=== PATIENT | male | born 1970 | race Caucasian/White ===

== ENCOUNTER 2024-03-06 09:31 | Emergency (ER) | payer OTHER, SELFPAY ==
[2024-03-06] VITALS (7 sets, daily range): BP systolic 140–191; BP diastolic 82–120; PULSE 80–103; RESP 16–20; TEMP 36.7–37.4; O2SAT 95–97; BMI 32.5
--- NOTE | 2024-03-06 10:12 | XR_ITS ---
Examination: Knee, left , 3 views Technique: Knee AP, lateral, oblique 3 views Date and time of exam: March 06, 2024 1016 hours INDICATIONS: Left knee redness swelling and pain today FINDINGS: Large knee effusion Old bone density near the anterior tibial tubercle No acute fracture IMPRESSION: Large knee effusion, seen with internal derangement of the knee, septic arthritis
--- NOTE | 2024-03-06 10:13 | PD.EDRME ---
Rapid Medical Screening Exam RME Arrival date/time: 03/06/24 09:31 53-year-old male presents emergency department complaints of left knee pain swelling and tenderness. I have greeted and performed a focused initial assessment of this patient. Initial appropriate labs ordered at this time. A comprehensive ED assessment and evaluation of the patient and analysis of all test and completion of medical decision making process will be conducted by additional ED provider. Chief Complaint: Extremity Problem,Nontraumatic Time Seen by Provider: 03/06/24 09:49 Vital signs: Vital Signs Temperature 99.4 F 03/06/24 09:49 Pulse Rate 98 03/06/24 09:49 Respiratory Rate 20 03/06/24 09:49 Blood Pressure 175/114 H 03/06/24 09:49 Pulse Oximetry (%) 96 03/06/24 09:49 Oxygen Delivery Method Room Air 03/06/24 09:49
[2024-03-06 10:43] LABS: Basophils # (Auto) 0.1 Thou/mm3 (0.0-0.2); Basophils % (Auto) 1 % (0-2.5); Eosinophils # (Auto) 0.1 Thou/mm3 (0.0-0.5); Eosinophils % (Auto) 1 % (0-10); Hematocrit 46.6 % (41.0-53.0); Hemoglobin 15.8 g/dL (13.5-16.0); Immature Granulocytes % (Auto) 0 % (0-0); Immature Granulocytes Auto 0.06 Thou/mm3 (0.00-0.00); Lymphocytes # (Auto) 3.7 Thou/mm3 (1.0-4.8); Lymphocytes % (Auto) 26 % (10-50); Mean Corpuscular HGB Conc 33.9 g/dl (31.0-37.0); Mean Corpuscular Hemoglobin 28.7 pg (25.0-35.0); Mean Corpuscular Volume 85 fL (80-100); Monocytes # (Auto) 1.5 Thou/mm3 (0.0-0.8); Monocytes % (Auto) 10 % (0-12); Neutrophils # (Auto) 9.2 Thou/mm3 (1.8-7.7); Neutrophils % (Auto) 63 % (37-80); Nucleated Red Blood Cell % 0 /100 WBC (0); Platelet Count 326 Thou/mm3 (140-440); RDW Standard Deviation 41.3 fL (35.1-43.9); White Blood Count 14.6 Thou/mm3 (3.8-10.6)
[2024-03-06 11:00] LABS: Alanine Aminotransferase 36 U/L (10-49); Albumin, Serum 4.9 gm/dL (3.5-5.0); Albumin/Globulin Ratio 1.6 (1.2-2.2); Alkaline Phosphatase 86 U/L (46-116); Anion Gap 9 (7-16); Aspartate Amino Transferase 24 U/L (0-34); BUN/Creatinine Ratio 11 Ratio (12-20); Bilirubin,Total 0.9 mg/dL (0.3-1.2); Blood Urea Nitrogen 15 mg/dL (9-23); C-Reactive Protein 6.5 mg/dL (0.0-0.9); Calcium 9.3 mg/dL (8.3-10.6); Calcium (Corrected) 9.3 mg/dL (8.5-10.1); Carbon Dioxide 24.4 mMol/L (20.0-31.0); Chloride 103 mMol/L (98-107); Creatinine (Component) 1.4 mg/dL (0.6-1.3); Estimated Creatinine Clearance 71.1 mL/min (>60); Glucose 93 mg/dL (74-106); Osmolality,Calculated 272 (275-295); Potassium 3.8 mMol/L (3.4-5.1); Sodium 136 mMol/L (136-145); Total Protein 7.9 gm/dL (5.7-8.2); Uric Acid 11.7 mg/dL (3.7-9.2); eGFR > 60 See Note
[2024-03-06 13:52] LABS: Sed Rate (ESR) 53 mm/hr (0-20)
[2024-03-06] MEDS: hydrALAZINE INJ 20 MG/ML VIAL IV (19:49)
[2024-03-06] MEDS: HYDROcodone/APAP 5/325 TABLET 1 TAB PO (19:49)
--- NOTE | 2024-03-06 20:06 | PD.EDEXREM ---
ED Extremity Problem RME/HPI General Chief complaint: Extremity Problem,Nontraumatic Stated complaint: I THINK IT'S GOUT LEFT KNEE Time Seen by Provider: 03/06/24 09:49 Arrival date/time: 03/06/24 09:31 RME / HPI RME / HPI Narrative: 03/06/24 09:31 53-year-old male presents emergency department complaints of left knee pain swelling and tenderness. I have greeted and performed a focused initial assessment of this patient. Initial appropriate labs ordered at this time. A comprehensive ED assessment and evaluation of the patient and analysis of all test and completion of medical decision making process will be conducted by additional ED provider. Dr. Aleman HPI: 52-year-old male coming in with left knee pain that started 2 days ago. The patient stated started acutely. He started using a cane to help walk. Patient states is similar to his previous gout presentations. No trauma. No fevers. Patient states that he has a new doctor and he has not taken his lisinopril in a few days. PMHX GOUT Related Data Home Medications ?Medication ?Instructions ?Recorded ?Confirmed pravastatin 20 mg tablet 40 mg PO HS #0 tabs 11/20/15 12/01/18 (Pravachol) sertraline 100 mg tablet (Zoloft) 100 mg PO QDAY #0 tabs 11/20/15 12/01/18 zolpidem 10 mg tablet (Ambien) 10 mg PO HS #0 tabs 11/20/15 12/01/18 aripiprazole 5 mg tablet (Abilify) 5 mg PO QDAY 11/28/17 12/01/18 ferrous sulfate, dried 159 mg (45 See Rx Instructions .Route 11/28/17 12/01/18 mg iron) tablet,extended release .COMPLEX anemia (iron ER) benazepril 10 mg tablet 10 mg PO QDAY 12/01/18 12/01/18 Previous Rx's ?Medication ?Instructions ?Recorded docusate sodium 100 mg capsule 100 mg PO QDAY #7 caps 11/28/17 (Colace) diphenhydramine HCl 25 mg capsule 25 mg PO Q8H PRN allergic symptoms 12/01/18 (Benadryl) #30 caps allopurinol 100 mg tablet 100 mg PO QDAY #30 tabs 03/29/23 indomethacin 50 mg capsule 50 mg PO BID For gout arthritis 03/29/23 #30 caps allopurinol 100 mg tablet 100 mg PO QDAY #14 tabs 03/07/24 indomethacin 50 mg capsule 50 mg PO BID #14 caps 03/07/24 prednisone 50 mg tablet 50 mg PO QDAY #7 tabs 03/07/24 Allergies Allergy/AdvReac Type Severity Reaction Status Date / Time Penicillins Allergy Severe TOLD NOT Verified 03/06/24 09:32 TO TAKE Course Quality Measures none Orders Category Date Time Status XR knee LT 3V Stat Exams 03/06/24 10:12 Completed Blood Culture (Lab) Stat Lab 03/06/24 21:40 Completed CBC Stat Lab 03/06/24 10:14 Completed CMP [Comprehensive Metabolic Panel] Stat Lab 03/06/24 10:14 Completed CRP [C-Reactive Protein] Stat Lab 03/06/24 10:14 Completed Glucose,Synovial Fluid* Stat Lab 03/06/24 21:49 Completed Lactic Acid [Lactate (Lactic Acid)] Stat Lab 03/06/24 21:42 Completed Procalcitonin Stat Lab 03/06/24 21:42 Completed Sed Rate (ESR) Stat Lab 03/06/24 10:14 Completed Synovial Fluid, Cell Cnt/Diff Stat Lab 03/06/24 21:49 Completed Synovial Fluid, Crystals* Stat Lab 03/06/24 21:49 Completed Uric Acid Stat Lab 03/06/24 10:14 Completed HYDROcodone*/APAP 5/325 [Sunman 5/325] Med 03/06/24 19:40 Discontinued 1 tab PO X1 ONE Lisinopril [Prinivil] Med 03/06/24 21:05 Discontinued 20 mg PO X1 ONE Morphine Inj Med 03/06/24 21:05 Discontinued 4 mg IVP X1 ONE Ondansetron Inj [Zofran Inj] Med 03/06/24 21:05 Discontinued 4 mg IV X1 ONE Sodium Chloride 0.9% 500 ml [Ns] 500 ml Med 03/06/24 21:06 Discontinued IV 999 mls/hr hydrALAZINE INJ [Apresoline Inj] Med 03/06/24 19:40 Discontinued 20 mg IV X1 ONE Vital Signs Vital signs: Vital Signs Temperature 99.4 F 03/06/24 09:49 Pulse Rate 98 03/06/24 09:49 Respiratory Rate 20 03/06/24 09:49 Blood Pressure 175/114 H 03/06/24 09:49 Pulse Oximetry (%) 96 03/06/24 09:49 Oxygen Delivery Method Room Air 03/06/24 09:49 Procedures -ED Joint Aspiration/Injection Joint Asp./Inject. 1: Time Out Performed: Yes Side of body: left Joint Aspirated: knee Ultrasound Guidance: Yes Skin Prep: Povidone-Iodine1% Amount of anesthesia used (mL): 20 Needle Size Used: 18G Fluid Obtained: clear Total fluid obtained (mL): 20 Patient Tolerated Procedure: well Complications: none Extremity Problem MDM Narrative MDM Narrative:: Differential diagnosis includes gout, cellulitis, septic joint, ligamental injury, gout, noninflammatory arthritis Review of the labs show that he has a white count of 14,000 which is abnormal, uric acid is 11 which is abnormal and consistent with gout, C-reactive protein is 6.5 which is abnormal indication of Umbilical exam the patient is lying in the bed he appears slightly uncomfortable. He is not septic appearing. His left knee is swollen, decreased movement secondary to pain. No overlying cellulitis. Plan patient agrees to arthrocentesis to rule out septic joint versus gout. Risk and benefits of this discussed with the patient and the at the bedside. Will risk and benefits are done and the patient agrees. 2108. Ultrasound-guided arthrocentesis. Pain control. Nausea medicine for nausea secondary to narcotics, will add lactate and procalcitonin to his labs as well as blood cultures. At this time he does not have a fever. Patient data External records reviewed:: Other (specify) Clinical information provided by:: patient Social determinants that could affect healthcare access:: none Patient has the following chronic illnesses:: Gout How is presenting disease/condition affected by chronic disease/condition?: exacerbated by Evaluation data The following diagnostics were reviewed and interpreted by me:: lab results Lab and/or radiology exams considered but not ordered:: [facility] [address] [place] [address] [facility] Report Signed Patient: JONA COLEMAN Record#: [id number] Birthdate: 1970 Age/Sex: 53 / M Location: [facility] Attending Dr: Ordering Physician: Mine Horn Date of Service: 03/06/24 Procedure(s): XR knee LT 3V Accession Number(s): [id number] cc: Joao Duggan MD; Mine Horn CLINICAL INFORMATICS SPEC~ Examination: Knee, left , 3 views Technique: Knee AP, lateral, oblique 3 views Date and time of exam: March 06, 2024 1016 hours INDICATIONS: Left knee redness swelling and pain today FINDINGS: Large knee effusion Old bone density near the anterior tibial tubercle No acute fracture IMPRESSION: Large knee effusion, seen with internal derangement of the knee, septic arthritis Dictated By: Joao Duggan MD Signed By: <Electronically signed by Joao Duggan MD in [place]> 03/06/24 1030 DD/ 1030 TD/TT: 03/06/24 1030 Slicing Machine Feeder: [email or web address] Interpretation Summary: Reviewed Medications / Prescriptions Medications or Prescriptions considered but not ordered:: none Medication administrations:: Medication Administration History Discontinued Medications Hydrocodone Bitart/Acetaminophen (Hydrocodone/Apap 5/325 Tablet) 1 tab PO X1 ONE Stop: 03/06/24 19:41 Last Admin: 03/06/24 19:49 Dose: 1 tab Documented By: MICHELLE Hydralazine HCl (Hydralazine Inj 20 Mg/Ml Vial) 20 mg IV X1 ONE Stop: 03/06/24 19:41 Last Admin: 03/06/24 19:49 Dose: 20 mg Documented By: MICHELLE Sodium Chloride (Ns) 500 mls @ 999 mls/hr IV .Q31M ONE Stop: 03/06/24 21:36 Last Infusion: 03/06/24 22:50 Dose: Infused Documented By: Admin: 03/06/24 21:15 Dose: 999 mls/hr Documented By: MICHELLE Lisinopril (Lisinopril 20 Mg Tablet) 20 mg PO X1 ONE Stop: 03/06/24 21:06 Last Admin: 03/06/24 21:14 Dose: 20 mg Documented By: MICHELLE Morphine Sulfate (Morphine Sulf Inj 10 Mg/Ml Vial) 4 mg IVP X1 ONE Stop: 03/06/24 21:06 Last Admin: 03/06/24 21:14 Dose: 4 mg Documented By: MICHELLE Ondansetron HCl (Ondansetron Inj 2 Mg/Ml Inj 2 Ml) 4 mg IV X1 ONE; Protocol Stop: 03/06/24 21:06 Last Admin: 03/06/24 21:14 Dose: 4 mg Documented By: CB as above Consultations Consultation(s) initiated? (list below): No Diagnosis Most likely diagnosis given after review of the tests above:: Gout Admission Indicated Admission indicated?: not indicated Admission Request Was there a request for admission?: No Disposition Plan Disposition Plan: Discharge Discharge Attestation Discharge Attestation: The patient and all family members were given an opportunity to ask questions and understood the discharge instructions. Discharge instructions specifically effects, indications for sooner follow up or return to the emergency department, and the expected course of current diagnosis. Patient condition: Stable Discharge Plan Plan Patient Disposition: HOME (Self Care) Patient condition on transfer: Stable Prescriptions/Referrals Prescriptions/Med Rec: New allopurinol 100 mg tablet 100 mg PO QDAY Qty: 14 0RF indomethacin 50 mg capsule 50 mg PO BID Qty: 14 0RF Rx Instructions: administer with food or milk prednisone 50 mg tablet 50 mg PO QDAY Qty: 7 0RF No Action sertraline [Zoloft] 100 MG tablet 100 mg PO QDAY Qty: 0 pravastatin [Pravachol] 20 MG tablet 40 mg PO HS Qty: 0 zolpidem [Ambien] 10 MG tablet 10 mg PO HS Qty: 0 aripiprazole [Abilify] 5 mg Tablet 5 mg PO QDAY iron 159 mg (45 mg iron) Tablet Extended Release See Rx Instructions .ROUTE .COMPLEX Rx Instructions: 0 mg orally docusate sodium [Colace] 100 mg capsule 100 mg PO QDAY Qty: 7 0RF benazepril 10 mg Tablet 10 mg PO QDAY diphenhydramine HCl [Benadryl] 25 mg capsule 25 mg PO Q8H PRN (Reason: allergic symptoms) Qty: 30 0RF indomethacin 50 mg capsule 50 mg PO BID Qty: 30 0RF Rx Instructions: administer with food or milk allopurinol 100 mg tablet 100 mg PO QDAY Qty: 30 0RF Referrals: Violeta Green MD [Primary Care Provider] - In 1 week Problem List Clinical Impression: Gout Patient/Caregiver Discharge Instructions Education Materials: ED NEENA Wrap, ED Gout, ED Gout Diet Additional Instructions: Please follow-up with your primary care physician so that you can get referral for your arthritis. You have been to the emergency department multiple times with large knee effusion. Today does not show infection. Follow-up in 72 hours for reevaluation. Return to emergency department for fever, any redness at the knee, or any other concerns Print Language: Welsh Stand Alone Forms: Lindy Award Info., Patient Portal Info Letter
[2024-03-06] MEDS: MORPHINE SULF INJ 10 MG/ML VIAL 4 MG IVP (21:14)
[2024-03-06] MEDS: ONDANSETRON INJ 2 MG/ML INJ 2 ML 4 MG IV (21:14)
[2024-03-06] MEDS: Lisinopril 20 MG TABLET PO (21:14)
[2024-03-06] MEDS: SODIUM CHLORIDE 0.9% 500 ML 500 ML 999 ML IV (21:15)
[2024-03-06 21:56] LABS: Synovial Fluid, Crystals* See Sep Rpt
[2024-03-06 21:56] LABS: Lactate (Lactic Acid) 1.6 mMol/L (0.4-2.0)
[2024-03-06 22:06] LABS: Synovial Fluid Mononuclear 5.4 %; Synovial Fluid Polynuclear 94.6 %; Synovial Fluid RBC 0.002 /cmm; Synovial Fluid WBC 15872 /cmm
[2024-03-06 22:08] LABS: Source,Synovial Fluid Knee; Synovial Fluid Appearance Cloudy; Synovial Fluid Color Yellow
[2024-03-06 22:27] LABS: Procalcitonin 0.15 ng/ml (0.0-0.49)
[2024-03-07 01:17] VITALS: RESP 18
[2024-03-13 06:20] LABS: Glucose,Synovial Fluid* 94 mg/dL
== END 2024-03-07 01:18 | disposition home or self-care (01) ==
PROVIDERS: Nurse Practitioner Primary Care; Emergency Provider Emergency Medicine; PCP Family Medicine
DX: M10.9 Gout, unspecified (principal)
CPT/HCPCS: 20611; 36415; 73562; 80053; 82945; 83605; 84145; 84550; 85025; 85652; 86140; 87040; 89051; 96361; 96374; 96375; 99284; J0360; J2270; J2405; J7040; A9270

== ENCOUNTER → 2024-03-18 | Outpatient (CLI) | payer OTHER, SELFPAY ==
[2024-03-18 11:26] LABS: Glucose Estimated Average 111 mg/dL (80-131); Hemoglobin A1C 5.5 % Hgb (4.8-6.0); Sed Rate (ESR) 31 mm/hr (0-20)
[2024-03-18 11:53] LABS: Alanine Aminotransferase 55 U/L (10-49); Albumin, Serum 4.3 gm/dL (3.5-5.0); Albumin/Globulin Ratio 1.7 (1.2-2.2); Alkaline Phosphatase 76 U/L (46-116); Anion Gap 7 (7-16); Aspartate Amino Transferase 20 U/L (0-34); BUN/Creatinine Ratio 22 Ratio (12-20); Bilirubin,Total 0.4 mg/dL (0.3-1.2); Blood Urea Nitrogen 28 mg/dL (9-23); Calcium 8.9 mg/dL (8.3-10.6); Calcium (Corrected) 8.9 mg/dL (8.5-10.1); Carbon Dioxide 27.5 mMol/L (20.0-31.0); Cardiac Risk Estimate 5.9 RATIO (4.0-6.7); Chloride 104 mMol/L (98-107); Cholesterol 246 mg/dL (132-200); Creatinine (Component) 1.3 mg/dL (0.6-1.3); Globulin 2.6 gm/dL (2.3-3.5); Glucose 97 mg/dL (74-106); HDL Cholesterol 42 mg/dL (40-60); LDL Cholesterol,Calculated 155 mg/dL (0-130); Osmolality,Calculated 281 (275-295); Potassium 4.3 mMol/L (3.4-5.1); Sodium 138 mMol/L (136-145); Thyroid Stimulating Hormone 3.13 uIU/mL (0.55-4.78); Total Protein 6.9 gm/dL (5.7-8.2); Triglycerides 245 mg/dL (30-150); Uric Acid 10.7 mg/dL (3.7-9.2); eGFR > 60 See Note
== END | disposition home or self-care (01) ==
PROVIDERS: PCP Family Medicine; Referring Provider Physician Assistant; Visit Provider Physician Assistant
DX: I10 Essential (primary) hypertension (principal)
CPT/HCPCS: 36415; 80053; 80061; 83036; 84443; 84550; 85652

== ENCOUNTER → 2024-06-26 | Outpatient (CLI) | payer OTHER, SELFPAY ==
[2024-06-26 10:20] LABS: Basophils # (Auto) 0.1 Thou/mm3 (0.0-0.2); Basophils % (Auto) 1 % (0-2.5); Eosinophils # (Auto) 0.3 Thou/mm3 (0.0-0.5); Eosinophils % (Auto) 3 % (0-10); Hematocrit 41.2 % (41.0-53.0); Immature Granulocytes % (Auto) 1 % (0-0); Immature Granulocytes Auto 0.07 Thou/mm3 (0.00-0.00); Lymphocytes # (Auto) 3.3 Thou/mm3 (1.0-4.8); Lymphocytes % (Auto) 33 % (10-50); Mean Corpuscular Hemoglobin 28.5 pg (25.0-35.0); Mean Corpuscular Volume 84 fL (80-100); Monocytes # (Auto) 0.6 Thou/mm3 (0.0-0.8); Monocytes % (Auto) 6 % (0-12); Neutrophils # (Auto) 5.8 Thou/mm3 (1.8-7.7); Neutrophils % (Auto) 57 % (37-80); Nucleated Red Blood Cell % 0 /100 WBC (0); Platelet Count 293 Thou/mm3 (140-440); Red Blood Count 4.91 Miln/mm3 (4.50-5.90); White Blood Count 10.1 Thou/mm3 (3.8-10.6)
[2024-06-26 10:38] LABS: Alanine Aminotransferase 48 U/L (10-49); Alkaline Phosphatase 80 U/L (46-116); Anion Gap 8 (7-16); Aspartate Amino Transferase 14 U/L (0-34); BUN/Creatinine Ratio 15 Ratio (12-20); Bilirubin,Direct 0.1 mg/dL (0.0-0.3); Bilirubin,Total 0.3 mg/dL (0.3-1.2); Blood Urea Nitrogen 17 mg/dL (9-23); Calcium 8.9 mg/dL (8.3-10.6); Cardiac Risk Estimate 4.9 RATIO (4.0-6.7); Chloride 108 mMol/L (98-107); Cholesterol 178 mg/dL (132-200); Creatinine (Component) 1.1 mg/dL (0.6-1.3); Free T4 (Free Thyroxine) 1.06 ng/dL (0.89-1.76); Glucose 113 mg/dL (74-106); HDL Cholesterol 36 mg/dL (40-60); LDL Cholesterol,Calculated 84 mg/dL (0-130); Osmolality,Calculated 287 (275-295); Potassium 4.1 mMol/L (3.4-5.1); Sodium 143 mMol/L (136-145); Thyroid Stimulating Hormone 2.14 uIU/mL (0.55-4.78); Total Protein 6.2 gm/dL (5.7-8.2); Triglycerides 292 mg/dL (30-150); Uric Acid 11.1 mg/dL (3.7-9.2); eGFR > 60 See Note
== END | disposition home or self-care (01) ==
LOC: COPL 09:12
PROVIDERS: PCP Internal Medicine Cardiovascular Disease; Referring Provider Internal Medicine Cardiovascular Disease; Visit Provider Internal Medicine Cardiovascular Disease
DX: I10 Essential (primary) hypertension (principal); E78.5 Hyperlipidemia, unspecified; I49.9 Cardiac arrhythmia, unspecified; M10.9 Gout, unspecified
CPT/HCPCS: 36415; 80048; 80061; 80076; 84439; 84443; 84550; 85025